=== PATIENT | female | born 1955 | race Caucasian/White ===

== ENCOUNTER → 2017-07-28 | Outpatient (CLI) | payer OTHER ==
[~2017-07-28] MED LIST: ALLEGRA; IOPAMIDOL 370 MG/ML 200 ML INFUS..BTL INJ ONE; LIPITOR10 MG PO; SODIUM CHLORIDE 0.9% 50ML 50 ML ONE; SUPHEDRINE PE10 MG
--- NOTE | 2017-07-28 17:51 | Diagnostic Imaging Report ---
PROCEDURE: CT ABDOMEN WITH CONTRAST TECHNIQUE: The abdomen was scanned utilizing a multidetector helical scanner from the diaphragm to the iliac crest after the IV administration of 100 cc of Isovue 370 and the oral administration of water. Coronal and sagittal multiplanar reformations were obtained. COMPARISON: None. INDICATIONS: UPPER ABD PAIN FINDINGS: LOWER THORAX: Linear subsegmental atelectasis versus scarring in the posterior right lower lobe (series 2 image 12). 5 mm groundglass nodule in the posteromedial right lower lobe (series 2, image 6, and coronal image 80). 3-4 mm nodule in the lingula (series 2, image 2). HEPATOBILIARY: Normal hepatic size and contour. Decreased attenuation of the hepatic parenchyma compared to the spleen, consistent with steatosis. * 7 mm fluid density lesion in hepatic segment II (series 2 image 12). * Slightly lobulated 1.4 x 1.3 x 2.0 cm fluid density lesion at the inferior tip of hepatic segment (coronal image 44 and sagittal image 25), which may represent a minimally complex cyst with single thin septation versus 2 adjacent simple cysts. * 2 and 4 millimeter hypodense lesions in hepatic segment VIII at the dome (series 2 image 8), which are too small to characterize. No biliary ductal dilation. Gallbladder is unremarkable. SPLEEN: No splenomegaly. 1.2 x 1.5 x 1.2 cm hypodense lesion in the posterior aspect of the spleen (series 2 image 24), with mild peripheral, discontinuous enhancement, likely represent a small hemangioma. PANCREAS: No focal masses or ductal dilatation. ADRENALS: No adrenal nodules. KIDNEYS: No hydronephrosis, stones, or solid mass lesions. 1.1 cm fluid density simple cyst in the superior pole of the left kidney (series 2 image 24). Lobulated, multiloculated fluid density lesion involving the inferior pole of the right kidney, which measures 7.9 x 5.0 x 4.4 cm in greatest dimension. Punctate calcification in the inferior wall of this lesion (sagittal image 40). A few thin septations are identified with no perceived enhancement. No mural nodules. PERITONEUM / RETROPERITONEUM: No free air or fluid. LYMPH NODES: No lymphadenopathy. VESSELS: Mild atherosclerotic calcification of the abdominal aorta. GI TRACT: Visualized bowel shows no dilation or obstruction. No pericolonic inflammatory changes. BONES AND SOFT TISSUES: No aggressive lytic lesions. Mild degenerative disc changes in the lower thoracic and lumbosacral spine. Soft tissues are grossly unremarkable. IMPRESSION: 1. no acute abdominopelvic abnormalities. 2. Lobulated, multiloculated fluid density lesion with a few thin septations involving the inferior pole of the right kidney, which is indeterminate. This probably represents grouping of simple cysts, however, other less likely diagnostic considerations include multilocular cystic nephroma. Recommend contrast enhanced abdominal MRI with renal mass protocol for further evaluation. 3. Slightly lobulated 2.0 cm fluid density lesion at the inferior tip of hepatic segment likely represents a minimally complex cyst versus 2 adjacent simple cysts. These can also be assessed with above mentioned MRI. A 7 mm low density lesion in hepatic segment II is consistent with a simple cyst. 4. 1.5 cm hypodense lesion in the spleen likely represents a small hemangioma. Faisal Arriaga M.D. Dictated by: Faisal Arriaga M.D. on 07/28/2017 at 17:50 Electronically approved by: Faisal Arriaga M.D. on 07/28/2017 at 17:50
== END ==
LOC: CT 14:44
PROVIDERS: ATTEND Surgery
DX: R10.10 Upper abdominal pain, unspecified (principal); D73.89 Other diseases of spleen; K76.9 Liver disease, unspecified; N28.9 Disorder of kidney and ureter, unspecified
CPT/HCPCS: 74160; Q9967